=== PATIENT | female | born 1960 | race Caucasian/White ===

== ENCOUNTER 2020-01-22 12:15 | Emergency (ER) | payer OTHER, SELFPAY ==
[2020-01-22 12:25] VITALS: BP 141/75; PULSE 58; RESP 16; TEMP 36.4; O2SAT 100
--- NOTE | 2020-01-22 12:29 | ED_ITS ---
HPI - Altered Mental Status General Chief Complaint: Neuro Symptoms/Deficit Stated Complaint: altered loc Time Seen by Provider: 01/22/20 12:23 Source: EMS Mode of arrival: EMS Limitations: no limitations History of Present Illness HPI narrative: Patient is a 59-year-old female presents with altered mental status. She was out snorkeling and kayaking with friends when they noticed something was not right with her. She seemed confused she does not know what year it is but otherwise has no complaints. She states that she recently stopped bupropion and started Cymbalta and the dose was changed. She takes it for anxiety depression. She denies any other health history. She feels like her mental status is improving since he has been in the ambulance and thinks that maybe she was just cold. MD complaint: confusion Related Data Allergies Allergy/AdvReac Type Severity Reaction Status Date / Time Sulfa (Sulfonamide Allergy Verified 01/22/20 12:36 Antibiotics) Review of Systems Review of Systems ROS Unobtainable: All systems reviewed & are unremarkable except as noted in HPI and below Constitutional Constitutional: Denies chills, Denies fever(s), Denies lethargy and Denies weakness ENT Ears, Nose, Mouth, and Throat: Denies change in voice, Denies neck pain and Denies sore throat Cardiovascular Cardiovascular: Denies chest pain, Denies irregular heart rhythm, Denies lightheadedness, Denies palpitations, Denies dyspnea, Denies dyspnea on exertion and Denies orthopnea Respiratory Respiratory: Denies cough, Denies dyspnea, Denies dyspnea on exertion and Denies wheezing Gastrointestinal Gastrointestinal: Denies abdominal pain, Denies nausea and Denies vomiting Musculoskeletal Musculoskeletal: Denies back pain, Denies myalgias and Denies neck pain Integumentary/Breasts Skin/Breast: Denies pruritus, Denies erythema, Denies rash and Denies wounds Neurologic Neurologic: Reports as per HPI, Reports confusion, Reports memory loss and Denies weakness Psychiatric Psychiatric: Reports confusion and Reports memory loss Endocrine Endocrine: Denies palpitations Allergic/Immunologic Allergic/Immunologic: Denies wheezing Patient History Social History Smoking Status: Never smoker Smoking Status: Never smoker alcohol intake frequency: 0-2 drinks per day Substance Use Type: does not use Exam Initial Vital Signs Initial Vital Signs: Vital Signs Temperature 97.6 F 01/22/20 12:25 Pulse Rate 58 L 01/22/20 12:25 Respiratory Rate 16 01/22/20 12:25 Blood Pressure 141/75 H 01/22/20 12:25 Pulse Oximetry 100 01/22/20 12:25 GENERAL: Well-appearing, well-nourished and in no acute distress. HEENT: Head atraumatic,EOMI, pupils reactive, face symmetric, moist mucous membranes CARDIOVASCULAR: Regular rate and rhythm without murmurs, rubs or gallops. RESPIRATORY: Breath sounds equal bilaterally, no wheezes rales or rhonchi. ABDOMEN: Soft, nontender. Normoactive bowel sounds all 4 quadrants. No guarding or rebound. EXTREMITIES: Normal range of motion, no clubbing or edema. Neurovascularly intact NEUROLOGICAL: Alert and oriented [id number] gait and speech. Cranial nerves II through XII grossly intact. Good [id number], good [id number], strength equal bilaterally, no dysarthria or aphasia, sensation in tact to soft touch bilaterally, no visual changes, no facial droop SKIN: Warm, dry, no laceration, no petechiae, no rashes or lesions. Course Orders Ordered: ED Orders 01/22/20 12:10 Complete Blood Count AUTO DIFF Stat Comprehensive Metabolic Panel Stat Ethanol (ETOH) Stat Troponin & CK Cardiac Panel Stat Discontinued Medications Sodium Chloride (Normal Saline 0.9%) 1,000 mls @ 1,000 mls/hr IV CONT JES Last Infusion: 01/22/20 13:27 Dose: 0 mls/hr Documented by: Admin: 01/22/20 12:30 Dose: 1,000 mls/hr Documented by: AMANDA Vital Signs Vital signs: Vital Signs - 8 hr 01/22/20 12:25 01/22/20 12:59 01/22/20 13:00 Temperature 97.6 F Pulse Rate 58 L 58 L 70 Respiratory Rate 16 Blood Pressure 141/75 H 134/76 Pulse Oximetry 100 100 100 01/22/20 14:08 Temperature Pulse Rate 60 Respiratory Rate 14 Blood Pressure 123/56 L Pulse Oximetry 98 MDM - Altered Mental Status Lab Data Attestation: I reviewed the patient's lab results. Result diagrams: 01/22/20 12:10 01/22/20 12:10 Labs: Lab Results 01/22/20 01/22/20 Range/Units 12:10 12:10 WBC 6.2 (4.5-11.0) X10^3/uL RBC 4.68 (4.0-5.2) X10^6/uL Hgb 14.0 (12.0-16.0) g/dL Hct 42.7 (36-46) % MCV 91.3 (80-100) fL MCH 29.8 (26-34) PG MCHC 32.7 (30-36) % RDW 13.3 (11.6-14.8) % Plt Count 275 (150-400) X10^3/uL Neut % (Auto) 56.9 (50-75) % Lymph % (Auto) 29.0 (25-40) % [place] % (Auto) 6.1 (3-14) % Eos % (Auto) 6.2 H (2-4) % Baso % (Auto) 1.8 (0-2) % Neut # (Auto) 3500 (3880-2378) /uL Lymph # (Auto) 1800 (2475-9196) /uL [place] # (Auto) 400 (0-900) /uL Eos # (Auto) 400 (0-450) /uL Baso # (Auto) 100 (0-100) /uL Sodium 140 (137-145) mmol/L Potassium 4.1 (3.4-5.1) mmol/L Chloride 102 (98-107) mmol/L Carbon Dioxide 28 (22-32) mmol/L BUN 9 (7-17) mg/dL Creatinine 0.65 (0.52-1.04) mg/dL Estimated GFR > 60.0 (>60) mL/min BUN/Creatinine Ratio 13.8 (6-22) Glucose 99 (80-110) mg/dL Calcium 9.8 (8.4-10.2) mg/dL Total Bilirubin 0.9 (0.2-1.3) mg/dL AST 31 (14-36) IU/L ALT 25 (<35) IU/L Alkaline Phosphatase 94 (38-126) U/L Total Creatine Kinase 87 (30-135) U/L CK-MB (CK-2) TNP CK-MB (CK-2) Rel Index TNP Troponin I < 0.012 (0.01-0.034) ng/mL Total Protein 8.3 H (6.3-8.2) g/dL Albumin 5.2 H (3.5-5.0) g/dL Globulin 3.1 (1.7-4.1) g/dL Albumin/Globulin Ratio 1.7 (1.0-2.8) Ethyl Alcohol < 10 ( - 10) mg/dL MDM Narrative Medical decision making narrative: Head CT was ordered however patient refused. She was in cold water for 5-10 minutes her memory has come back. I discussed with her that it may be sign of stroke and recommended that if confusion returns that she go to the nearest ER. She understands and agrees. She overall is feeling much better her friend has now arrived she feels ready and able to go home. She was never hypothermic in the ED she has had some food and snack in the here as well. I discussed all findings with the patient, Education has been performed regarding treatment plan, diagnosis, warning signs and symptoms and all concerns have been addressed. Verbally agree with and understood all of the above. Discharge Plan Departure Patient Disposition: Home Clinical Impression: Confusion with non-focal neuro exam Discharge Date/Time: 01/22/20 14:08 Instructions: DI for Transient Ischemic Attack Activity Restrictions/Additional Instructions: *You have been diagnosed with confusion *What to do: Your confusion is likely due to cold water exposure. I am glad that your overall feeling better. However confusion can sometimes indicate stroke. Please monitor closely and return to closest ER if symptoms return *Continue to take medications as directed *Follow up with your primary care provider in 2-3 days *Return to ER if you should have increased confusion, weakness, numbness, tingling or any new, worsening or concerning symptoms Referrals: Isaiah Sow MD [Primary Care Provider] -
[2020-01-22] MEDS: SODIUM CHLORIDE 0.9% 1,000 ML 1000 ML IV (12:30)
[2020-01-22 12:32] LABS: Add Manual Diff / Slide Review NO; Basophils Absolute Auto 100 /uL (0-100); Basophils Percent Auto 1.8 % (0-2); Eosinophils Absolute Auto 400 /uL (0-450); Eosinophils Percent Auto 6.2 % (2-4); Hematocrit 42.7 % (36-46); Lymphocytes Absolute Auto 1800 /uL (1100-4500); Mean Corpuscular HGB Conc 32.7 % (30-36); Mean Corpuscular Hemoglobin 29.8 PG (26-34); Mean Corpuscular Volume 91.3 fL (80-100); Monocytes Absolute Auto 400 /uL (0-900); Monocytes Percent Auto 6.1 % (3-14); Neutrophils Absolute Auto 3500 /uL (1500-7000); Neutrophils Percent Auto 56.9 % (50-75); Platelet Count 275 X10^3/uL (150-400); Red Blood Cell Count 4.68 X10^6/uL (4.0-5.2); Red Cell Distribution Width 13.3 % (11.6-14.8); White Blood Cell Count 6.2 X10^3/uL (4.5-11.0)
[2020-01-22 12:38] LABS: Alanine Aminotransferase 25 IU/L (<35); Albumin 5.2 g/dL (3.5-5.0); Albumin Globulin Ratio 1.7 (1.0-2.8); Alkaline Phosphatase 94 U/L (38-126); Aspartate Aminotransferase 31 IU/L (14-36); BUN Creatinine Ratio 13.8 (6-22); Bilirubin Total 0.9 mg/dL (0.2-1.3); Blood Urea Nitrogen 9 mg/dL (7-17); Calcium 9.8 mg/dL (8.4-10.2); Carbon Dioxide 28 mmol/L (22-32); Chloride 102 mmol/L (98-107); Creatine Kinase 87 U/L (30-135); Estimated Glomerular Filt Rate > 60.0 mL/min (>60); Ethanol (ETOH) < 10 mg/dL; Globulin 3.1 g/dL (1.7-4.1); Glucose 99 mg/dL (80-110); HEMOLYSIS < 15 (0-50); Potassium 4.1 mmol/L (3.4-5.1); Sodium 140 mmol/L (137-145); Total Protein 8.3 g/dL (6.3-8.2)
[2020-01-22 12:50] LABS: Troponin I < 0.012 ng/mL (0.01-0.034)
[2020-01-22 12:59] VITALS: PULSE 58; O2SAT 100
[2020-01-22 13:00] VITALS: BP 134/76; PULSE 70; O2SAT 100
--- NOTE | 2020-01-22 13:00 | PC.NURSE ---
Patient states things are coming back to her and she continues to recall events of the day. Answers all questions appropriately. GCS 15.
[2020-01-22 14:08] VITALS: BP 123/56; PULSE 60; RESP 14; O2SAT 98
== END 2020-01-22 14:08 | disposition home or self-care (01) ==
PROVIDERS: Emergency Provider Emergency Medicine; PCP Internal Medicine
DX: R41.0 Disorientation, unspecified (principal); R41.3 Other amnesia
CPT/HCPCS: 36415; 80053; 80320; 82550; 84484; 85025; 96360; 99284